=== PATIENT | female | born 1980 | race Caucasian/White ===

== ENCOUNTER → 2019-12-21 | Outpatient (CLI) ==
[~2019-12-21] MED LIST: MULTCAP PO
== END ==
LOC: EDUNIT# 10:05 → M LABSMTC 14:07
PROVIDERS: ATTEND Anesthesiology
DX: Z01.818 Encounter for other preprocedural examination (principal); Z20.828 Contact with and (suspected) exposure to other viral communicable diseases

== ENCOUNTER 2019-12-26 08:33 | Day surgery (SDC) | payer BC, OTHER ==
[~2019-12-26] VITALS: Ht 160 cm; Wt 77.6 kg
[~2019-12-26 08:33] MED LIST changes: +CLINDAMYCIN 900 MG in IV 1 EA IV ONE; +LR 1,000 ML IV ONE; +MIDAZOLAM INJ 2MG/2ML VIAL (J2250 PER 1MG) IV SCH; +fentaNYL 100 MCG/2 ML INJECTION (J3010) IV SCH
[2019-12-26] MEDS ORDERED: dexameTHASONE 10MG/1ML VIAL PRES.FREE (J1100 PER 1MG) ONE (08:34)
[2019-12-26] MEDS ORDERED: LIDOCAINE 1% MDV 20ML VIAL ONE (08:34)
[2019-12-26] MEDS ORDERED: ROPIvacaine 0.5% 30ML INJECTION (J2795 PER 1MG) ONE (08:34)
[2019-12-26] MEDS ORDERED: fentaNYL 100 MCG/2 ML INJECTION (J3010) As Ordered ONE ×2 (09:30→11:47)
[2019-12-26] MEDS ORDERED: MIDAZOLAM INJ 2MG/2ML VIAL (J2250 PER 1MG) As Ordered ONE ×2 (09:30→09:53)
[2019-12-26] MEDS ORDERED: SCOPOLAMINE 1MG TRANSDERMAL PATCH TOP ONE (09:45)
[2019-12-26] MEDS ORDERED: ROCURONIUM BROMIDE 50 MG/5 ML VIAL As Ordered ONE ×2 (09:53→11:45)
[2019-12-26] MEDS ORDERED: propofoL 200 MG/20 ML VIAL As Ordered ONE (09:53)
[2019-12-26] MEDS ORDERED: ONDANSETRON 4MG/2ML VIAL As Ordered ONE (09:54)
[2019-12-26] MEDS ORDERED: dexameTHASONE 4 MG/ML 1ML VIAL (J1100 PER 1MG) As Ordered ONE (09:54)
[2019-12-26] MEDS ORDERED: LIDOCAINE 2% 100MG/5ML SDV (FOR ANES.) As Ordered ONE (09:56)
[2019-12-26] MEDS ORDERED: dexameTHASONE 10MG/1ML VIAL PRES.FREE (J1100 PER 1MG) INJ ONE (11:30)
[2019-12-26] MEDS ORDERED: LIDOCAINE 1% MDV 20ML VIAL INJ ONE (11:30)
[2019-12-26] MEDS ORDERED: ROPIvacaine 0.5% 30ML INJECTION (J2795 PER 1MG) INJ ONE (11:30)
[2019-12-26] MEDS ORDERED: SUGAMMADEX SODIUM 500 MG/5 ML VIAL (BRIDION) As Ordered ONE (12:48)
[2019-12-26 14:55] VITALS: BP 120/71
--- NOTE | 2019-12-27 14:16 | RO ---
DATE OF OPERATION: 12/26/2019 PREOPERATIVE DIAGNOSIS: Possible right peroneal tendon tear. POSTOPERATIVE DIAGNOSES: 1. Right peroneal brevis partial tear. 2. 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 Right peroneal brevis debridement and repair. 2. Tenolysis of the peroneal brevis and peroneus longus. 3. Repair superior peroneal retinaculum. SURGEON: Rosemary Hernandez MD PRINT COLOR MATCHER: None. ANESTHESIA: General endotracheal anesthesia and popliteal nerve block. SPECIMENS: Peroneal brevis tendon. ESTIMATED BLOOD LOSS: 25 mL. COMPLICATIONS: None. CONDITION: Stable to recovery. INDICATIONS FOR PROCEDURE: Kavya Sexton is a 39-year-old female who has pain in the regions of peroneal tendons. As she is status post groove ____ osteotomy and superior peroneal retinaculum (SPR). Repeat MRI showed a possible partial tear of the peroneus brevis. Risks and benefits of surgery were discussed with her in detail and include, but are not limited to, infection, damage to nerves and blood vessels, continued pain and stiffness, need for further surgical procedures. Informed consent was obtained. DESCRIPTION OF PROCEDURE: The patient was met in the preoperative holding area, where her right lower extremity was marked as the correct operative site. She underwent a popliteal nerve block. She was taken to the operating room where the right lower extremity was prepped and draped in the normal sterile fashion. A well-padded tourniquet had been applied. She received IV antibiotics within 60 minutes prior to incision. An official timeout was held where the correct patient, operative site and operative procedure were verified. Using the patient's prior scar, an incision was made directly over the peroneal tendons. There was significant scar tissue. The superior peroneal retinaculum was incised and prior to a FiberWire was removed. The ligament had become quite thickened and scarred down. I identified the peroneus longus and peroneus brevis tendon. The peroneus longus was intact. It was significantly scarred down but the tendon itself was normal size and caliber. The peroneus brevis did have partial longitudinal tearing, which was debrided. It was also quite scarred down extending to the intramalleolar area. All the scar tissue was released in this area. After a thorough debridement of both tendons was performed, the peroneus brevis was repaired and tubularized using a 3-0 Vicryl suture. I did use the rongeur to freshen up the bone in the region of the superior peroneal retinaculum. This was repaired with 0 Vicryl. I was able to easily pass a Klemme through the superior peroneal retinaculum after the repair. The tendons glided freely. Copious irrigation was performed. Soft tissues were closed with 3-0 Vicryl and skin was closed with a running 3-0 nylon. A sterile dressing was applied followed by a well-padded splint. The patient was extubated and transferred to the recovery room in stable condition. PLAN: The patient will be nonweightbearing for six weeks. She will return to clinic in 1-2 weeks to be transferred into a boot to work on range of motion. She will be on aspirin for DVT prophylaxis. JOSIE
== END 2019-12-26 13:05 | disposition home or self-care (01) ==
LOC: M SDC 08:33
PROVIDERS: ATTEND Orthopaedic Surgery
DX: S86.311A Strain of muscle(s) and tendon(s) of peroneal muscle group at lower leg level, right leg, initial encounter (principal); X58.XXXA Exposure to other specified factors, initial encounter; Y92.89 Other specified places as the place of occurrence of the external cause; Y93.9 Activity, unspecified; Y99.9 Unspecified external cause status; Z91.040 Latex allergy status; Z91.010 Allergy to peanuts; Z91.018 Allergy to other foods
CPT/HCPCS: 27658; 27664; 27680; 64445; 81025; 88304; J1100; J2250; J2405; J2795; J3010